=== PATIENT | female | born 1965 ===

== ENCOUNTER 2022-07-24 05:44 | Day surgery (SDC) | payer OTHER ==
[~2022-07-24] VITALS: Ht 160 cm; Wt 71.7 kg
[~2022-07-24 05:44] MED LIST: CRESTOR40 MG PO; HYFIBER WI12 GM/302 PO; LOSARTAN-HCTZ1 EAC1 PO; MIRALAX17 GM PO; OMEGA-31000 MG PO; ZEGERID 40 MG1 EACH PO; ZETIA10 MG PO
[2022-07-24] MEDS ORDERED: PERCOCET 5-3251 EACH PO (09:52)
== END 2022-07-24 15:35 | disposition home or self-care (01) ==
LOC: CIR.AMB 05:44
PROVIDERS: ATTEND Surgery
DX: K64.8 Other hemorrhoids (principal); K62.89 Other specified diseases of anus and rectum; Z86.010 Personal history of colon polyps; I10 Essential (primary) hypertension; E78.5 Hyperlipidemia, unspecified; M79.7 Fibromyalgia